=== PATIENT | female | born 1985 | race Caucasian/White ===

== ENCOUNTER 2018-12-09 20:07 | Emergency (ER) | payer SELFPAY ==
[~2018-12-09] VITALS: Ht 165.1 cm; Wt 70.8 kg
[2018-12-09 20:38] LABS: BILIRUBIN,URINE NEGATIVE (NEG); CLARITY,URINE CLEAR; COLOR,URINE YELLOW; NITRITE,URINE NEGATIVE (NEG); PROTEIN,URINE NEGATIVE (NEG-TRACE); UROBILINOGEN,URINE 0.2 mg/dL (0.2 mg/dL)
[2018-12-09 20:46] LABS: BACTERIA,URINE FEW /HPF (0-FEW); RBC,URINE OCC /HPF (0-2); SQUAMOUS EPITHELIAL CELL,UR MOD /LPF
[2018-12-09 21:14] LABS: BASO # 0.1 x10^3/uL (0.0-0.2); BASO % 1 % (0-3); EOS # 0.1 x10^3/uL (0.0-0.7); EOS % 1 % (0-3); HEMATOCRIT 37.8 % (36.0-47.0); HEMOGLOBIN 12.3 g/dL (12.0-15.5); LYMPH # 2.5 x10^3/uL (1.0-4.8); LYMPH % 30 % (24-48); MEAN CORPUSCULAR HEMOGLOBIN 29 pg (25-35); MEAN CORPUSCULAR HGB CONC 33 g/dL (31-37); MEAN CORPUSCULAR VOLUME 88 fL (79-100); MONO # 0.4 x10^3/uL (0.0-1.1); MONO % 4 % (0-9); NEUT # 5.3 x10^3uL (1.8-7.7); NEUT % 64 % (31-73); PLATELET COUNT 385 x10^3/uL (140-400); RED BLOOD COUNT 4.31 x10^6/uL (3.50-5.40); RED CELL DISTRIBUTION WIDTH 13.6 % (11.5-14.5); WHITE BLOOD COUNT 8.4 x10^3/uL (4.0-11.0)
[2018-12-09] MEDS ORDERED: ONDANSETRON PF 4 MG/2 ML VIAL. IV ONE (21:15)
[2018-12-09] MEDS ORDERED: fentaNYL PF VIAL 100 MCG/2 ML VIAL IV ONE ×2 (21:15→22:30)
[2018-12-09 21:25] LABS: CALCIUM 8.6 mg/dL (8.5-10.1); CREATININE 0.7 mg/dL (0.6-1.0); GFR 96.4; POTASSIUM 3.5 mmol/L (3.5-5.1)
[2018-12-09 21:30] LABS: ALBUMIN 3.7 g/dL (3.4-5.0); ALBUMIN/GLOBULIN RATIO 0.9 (1.0-1.7); TOTAL PROTEIN 7.7 g/dL (6.4-8.2)
[2018-12-09] MEDS ORDERED: IOHEXOL 300 MG/ML 50 ML VIAL. IV ONE (21:30)
[2018-12-09] MEDS ORDERED: CONTRAST GIVEN. MC PRN (21:30)
--- NOTE | 2018-12-09 22:24 | RAD ---
INDICATION: RUQ AND RLQ ABDOMINAL PAIN, HX OF CHAPIN AND APPY SX, OMNI 300 75 mL. COMPARISON: None. TECHNIQUE: Axial CT images obtained through the abdomen and pelvis with contrast. One or more of the following individualized dose reduction techniques were utilized for this examination: 1. Automated exposure control; 2. Adjustment of the mA and/or kV according to patient size; 3. Use of iterative reconstruction technique. FINDINGS: Mild linear opacity left lung base could be scarring or atelectasis. Abdominal aorta is not aneurysmal. Postcholecystectomy changes. No peripancreatic fluid collection. Spleen unremarkable. Urinary bladder is partially distended. Mild prominence of the bilateral extrarenal pelvis. 2 mm nonobstructive right renal stone. Uterus is visualized. There is a couple of prominent loops of small bowel identified but no high-grade transition point to suggest obstruction. There is some questionable indistinctness the fat adjacent to the right side of the colon. IMPRESSION: 1. There is a couple of mildly prominent fluid-filled loops of small bowel but no high-grade transition point to suggest bowel obstruction. 2. Questionable mild haziness to the fat adjacent to the right side of the colon. This is a questionable finding and could be artifactual in nature but if the patient has appropriate symptoms a mild/early colitis can have this appearance. 3. Nonobstructive right renal stone. Electronically signed by: Cristofer Stevenson MD (12/09/2018 10:21 PM) [facility]
[2018-12-09 22:28] VITALS: BP 113/87
[2018-12-09] MEDS ORDERED: CEPH-264 PO (22:45)
[2018-12-09] MEDS ORDERED: HYDR-3164 PO (22:45)
[2018-12-09] MEDS ORDERED: ONDA4TAB12 PO (22:45)
[2018-12-09] MEDS ORDERED: KETOROLAC 15 MG/ML VIAL. IV ONE (22:45)
--- NOTE | 2018-12-09 22:45 | PHYS DOC ---
Past Medical History Past Medical History: Fibromyalgia, IBS Past Surgical History: Appendectomy, Cholecystectomy, Other Additional Past Surgical Histo: UMBILICAL HERNIA REPAIR Alcohol Use: Occasionally Drug Use: None Adult General Chief Complaint Chief Complaint: FLANK PAIN HPI HPI 33-year-old female presents to ER for complaints of right flank pain and right upper abdominal pain. She reports history of tones and states today she developed right flank pain and right upper abdominal pain. She reports she has had slight nausea denies any vomiting or diarrhea episodes. She denies urinary symptoms, fever, or incontinence. She reports she did take ibuprofen earlier today with no relief in symptoms. She denies any flulike symptoms recently. Patient states she was evaluated at urgent care prior to coming to the ER was told she had some blood in her urine. She denies being daily smoker or alcohol intake. Patient denies any family history of CAD. She denies any recent travel or other similar family with GI sxs. Review of Systems Review of Systems Constitutional: Denies fever or chills [] Eyes: Denies change in visual acuity, redness, or eye pain [] HENT: Denies nasal congestion or sore throat [] Respiratory: Denies cough or shortness of breath [] Cardiovascular: Denies CP GI: Denies vomiting, bloody stools or diarrhea. Reports rt flank and rt upper abd pain into her side. Reports intermittent nausea : Denies dysuria or hematuria [] Musculoskeletal: Denies back pain or joint pain [] Integument: Denies rash or skin lesions [] Neurologic: Denies headache, focal weakness or sensory changes [] All other systems were reviewed and found to be within normal limits, except as documented in this note. Current Medications Current Medications Current Medications Medications (Trade) Dose Ordered Sig/[place] Start Time Stop Time Status Last Admin Dose Admin Fentanyl Citrate (Fentanyl 2ml Vial) 25 mcg 1X ONCE 12/09/18 22:30 12/09/18 22:31 DC 12/09/18 22:27 25 MCG Info (CONTRAST GIVEN -- Rx MONITORING) 1 each PRN DAILY PRN 12/09/18 21:30 12/11/18 21:29 Iohexol (Omnipaque 300 Mg/ml) 75 ml 1X ONCE 12/09/18 21:30 12/09/18 21:31 DC 12/09/18 21:37 75 ML Ketorolac Tromethamine (Toradol 15mg Vial) 15 mg 1X ONCE 12/09/18 22:45 12/09/18 22:46 DC 12/09/18 22:43 15 MG Ondansetron HCl (Zofran) 4 mg 1X ONCE 12/09/18 21:15 12/09/18 21:16 DC 12/09/18 21:13 4 MG Allergies Allergies Allergies Coded Allergies Type Severity Reaction Last Updated Verified No Known Drug Allergies 12/09/18 No Physical Exam Physical Exam Constitutional: Well developed, well nourished, no acute distress, non-toxic appearance. [] HENT: Normocephalic, atraumatic, oropharynx moist, nose normal. [] Eyes: Pupils equal, conjunctiva normal, no discharge. [] Neck: Normal range of motion, no tenderness, supple, no stridor. [] Cardiovascular: Heart rate regular rhythm, no murmur [] Lungs & Thorax: Bilateral breath sounds clear to auscultation. Resp. equal and nonlabored Abdomen: Bowel sounds normal, soft- no distention or rigidity. Tender on palpation right upper abdomen into right lateral side, no rebound tenderness, no masses, no pulsatile masses. [] Skin: Warm, dry, no erythema, no rash. [] Back: Right-sided CVA tenderness. Full range of motion. No left side tenderness Extremities: No clubbing, ROM intact, no edema. [] Neurologic: Alert and oriented X 3, normal motor function, normal sensory function, no focal deficits noted. [] Psychologic: Affect normal, judgement normal, mood normal. [] Current Patient Data Vital Signs Vital Signs Date Time Temp Pulse Resp B/P (MAP) Pulse Ox O2 Delivery O2 Flow Rate FiO2 12/09/18 22:27 16 99 Room Air 12/09/18 20:20 98.6 75 126/89 (101) 98.6 Lab Values Laboratory Tests Test 12/09/18 20:10 12/09/18 20:19 12/09/18 20:55 Urine Collection Type Unknown Urine Color Yellow Urine Clarity Clear Urine pH 6.0 Urine Specific [place] 1.015 Urine Protein Negative mg/dL (NEG-TRACE) Urine Glucose (UA) Negative mg/dL (NEG) Urine Ketones (Stick) Negative mg/dL (NEG) Urine Blood Negative (NEG) Urine Nitrite Negative (NEG) Urine Bilirubin Negative (NEG) Urine Urobilinogen Dipstick 0.2 mg/dL (0.2 mg/dL) Urine Leukocyte Esterase Trace (NEG) Urine RBC Occ /HPF (0-2) Urine WBC 5-10 /HPF (0-4) Urine Squamous Epithelial Cells Mod /LPF Urine Bacteria Few /HPF (0-FEW) Urine Mucus Slight /LPF POC Urine HCG, Qualitative Hcg negative (Negative) White Blood Count 8.4 x10^3/uL (4.0-11.0) Red Blood Count 4.31 x10^6/uL (3.50-5.40) Hemoglobin 12.3 g/dL (12.0-15.5) Hematocrit 37.8 % (36.0-47.0) Mean Corpuscular Volume 88 fL (79-100) Mean Corpuscular Hemoglobin 29 pg (25-35) Mean Corpuscular Hemoglobin Concent 33 g/dL (31-37) Red Cell Distribution Width 13.6 % (11.5-14.5) Platelet Count 385 x10^3/uL (140-400) Neutrophils (%) (Auto) 64 % (31-73) Lymphocytes (%) (Auto) 30 % (24-48) Monocytes (%) (Auto) 4 % (0-9) Eosinophils (%) (Auto) 1 % (0-3) Basophils (%) (Auto) 1 % (0-3) Neutrophils # (Auto) 5.3 x10^3uL (1.8-7.7) Lymphocytes # (Auto) 2.5 x10^3/uL (1.0-4.8) Monocytes # (Auto) 0.4 x10^3/uL (0.0-1.1) Eosinophils # (Auto) 0.1 x10^3/uL (0.0-0.7) Basophils # (Auto) 0.1 x10^3/uL (0.0-0.2) Sodium Level 139 mmol/L (136-145) Potassium Level 3.5 mmol/L (3.5-5.1) Chloride Level 102 mmol/L (98-107) Carbon Dioxide Level 24 mmol/L (21-32) Anion Gap 13 (6-14) Blood Urea Nitrogen 7 mg/dL (7-20) Creatinine 0.7 mg/dL (0.6-1.0) Estimated GFR (Cockcroft-Gault) 96.4 BUN/Creatinine Ratio 10 (6-20) Glucose Level 93 mg/dL (70-99) Calcium Level 8.6 mg/dL (8.5-10.1) Total Bilirubin 1.0 mg/dL (0.2-1.0) Aspartate Amino Transferase (AST) 14 U/L (15-37) L Alanine Aminotransferase (ALT) 16 U/L (14-59) Alkaline Phosphatase 55 U/L (46-116) Troponin I Quantitative < 0.017 ng/mL (0.000-0.055) Total Protein 7.7 g/dL (6.4-8.2) Albumin 3.7 g/dL (3.4-5.0) Albumin/Globulin Ratio 0.9 (1.0-1.7) L Lipase 87 U/L (73-393) Laboratory Tests 12/09/18 20:55 Laboratory Tests 12/09/18 20:55 EKG EKG EKG obtained 12/09/18 at [address] Conklin Sinus rhythm Rate 70 No STEMI Radiology/Procedures Radiology/Procedures PROCEDURE: CT ABD PELV W/ IV CONTRST ONLY INDICATION: RUQ AND RLQ ABDOMINAL PAIN, HX OF CHAPIN AND APPY SX, OMNI 300 75 mL. COMPARISON: None. TECHNIQUE: Axial CT images obtained through the abdomen and pelvis with contrast. One or more of the following individualized dose reduction techniques were utilized for this examination: 1. Automated exposure control; 2. Adjustment of the mA and/or kV according to patient size; 3. Use of iterative reconstruction technique. FINDINGS: Mild linear opacity left lung base could be scarring or atelectasis. Abdominal aorta is not aneurysmal. Postcholecystectomy changes. No peripancreatic fluid collection. Spleen unremarkable. Urinary bladder is partially distended. Mild prominence of the bilateral extrarenal pelvis. 2 mm nonobstructive right renal stone. Uterus is visualized. There is a couple of prominent loops of small bowel identified but no high-grade transition point to suggest obstruction. There is some questionable indistinctness the fat adjacent to the right side of the colon. IMPRESSION: 1. There is a couple of mildly prominent fluid-filled loops of small bowel but no high-grade transition point to suggest bowel obstruction. 2. Questionable mild haziness to the fat adjacent to the right side of the colon. This is a questionable finding and could be artifactual in nature but if the patient has appropriate symptoms a mild/early colitis can have this appearance. 3. Nonobstructive right renal stone. Electronically signed by: Dolores Francisco MD (12/09/2018 10:21 PM) [facility] DICTATED and SIGNED BY: DOLORES FRANCISCO MD DATE: 12/09/182220 Course & Med Decision Making Course & Med Decision Making Pertinent Labs and Imaging studies reviewed. (See chart for details) 2225: On reevaluation patient had just received second dose of pain medication reports some improvement in pain. She has had no active vomiting and has been afebrile while in the ER. Discussed test results with labs unremarkable. UA with small amount of leuks and 5-10 WBCs on micro-. CT abdomen and pelvis with 2 mm right renal stone noted without obstruction. Also noted on CT was "here is a couple of mildly prominent fluid-filled loops of small bowel but no high- grade transition point to suggest bowel obstruction". Patient reports she does have intermittent issues with her IBS. She reports she does not follow up with a GI doctor and has had the previous kidney stones but has not been evaluated by a urologist. EKG was obtained with patient having upper abdominal pain no acute STEMI or ST elevation on tracing. Troponin was <0.017. Discussed providing referral information for both of those doctors on her discharge paperwork. Discussed plans for home discharge with prescription for nausea and pain medicine. Will provide prescription for Keflex. At this time patient remains nontoxic in appearance and in no distress during discussion. Will provide patient with dose of Toradol prior to discharge. Education provided on signs and symptoms to return to ER. Discharge instructions were discussed. Patient to follow-up with primary care physician if symptoms persist or with any concerns. Dragon Disclaimer Dragon Disclaimer This electronic medical record was generated, in whole or in part, using a voice recognition dictation system. Departure Departure Impression: Primary Impression: Right kidney stone Additional Impressions: UTI (urinary tract infection) Abdominal pain Disposition: 01 HOME, SELF-CARE Condition: STABLE Referrals: NO PCP (PCP) IVETTE MULTANI MD, SCOTT S MD Patient Instructions: Abdominal Pain, Diet for Kidney Stones, Kidney Stones, Urinary Tract Infection Additional Instructions: Drink plenty of fluids. Ibuprofen and/or tylenol (if not taking [place] tablets) as directed on container for pain. Follow-up with urology and gastrointestinal (GI) doctors for further care and re -evaluation. If unable to get appointment follow-up with your primary care doctor. Scripts Hydrocodone/Apap 5-325 (NORCO 5-325 TABLET) 1 Each Tablet 1 TAB PO PRN Q6HRS PRN for PAIN, #12 TAB 0 Refills No driving or drinking alcohol while taking this medication Prov: JIL HAWKINS APRN 12/09/18 Cephalexin (KEFLEX) 500 Mg Capsule 1 CAP PO BID, #10 CAP 0 Refills Prov: JIL HAWKINS APRN 12/09/18 Ondansetron (ONDANSETRON ODT) 4 Mg Tab.rapdis 1 TAB PO PRN Q6-8HRS PRN for NAUSEA, #10 TAB 0 Refills Prov: JIL HAWKINS APRN 12/09/18 Problem Qualifiers JIL HAWKINS APRN Dec 09, 2018 22:45
--- NOTE | 2018-12-10 06:44 | EKG ---
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
== END 2018-12-09 22:56 | disposition home or self-care (01) ==
LOC: ER 20:07
DX: N20.0 Calculus of kidney (principal); R10.11 Right upper quadrant pain; R11.0 Nausea; Z90.89 Acquired absence of other organs; Z90.49 Acquired absence of other specified parts of digestive tract
CPT/HCPCS: 36415; 74177; 80053; 81001; 81025; 83690; 84484; 85025; 87086; 93005; 96374; 96375; 96376; 99284; J1885; J2405; J3010; Q9967